=== PATIENT | female | born 2000 | race Caucasian/White ===

== ENCOUNTER 2022-06-09 21:24 | Inpatient (IN) | payer BC ==
[~2022-06-09] VITALS: Ht 172.7 cm; Wt 77.3 kg
[2022-06-09 21:30] VITALS: TEMP 98.6
[2022-06-09 21:45] VITALS: BP 115/59; PULSE 88; TEMP 98.9
--- NOTE | 2022-06-09 22:10 | NUR ---
PT PRESENTS TO L&D WITH C/O UC'S SINCE 183, GETTING STRONGER AND HURTING MORE WHEN SHE WALKS. SHE HAS BLOODY SHOW BUT NO LEAKING FLUID. SVE /-2. DR VILA HERE IN HOUSE INFORMED OF SVE AND PT'S COMPLAINTS. PLAN IS TO HAVE PT AMB FOR 1 HR AND RECHECK CERVIX. FHR 135. MODERATE VARIBILITY, ACCELS NOTED NO DECELS.
--- NOTE | 2022-06-09 23:30 | NUR ---
tessa pittman here to place epidural. pt in sitting position. time out at 2331 single shot done at 2340 pt tolerated well.
[2022-06-10] VITALS (31 sets, daily range): BP systolic 96–146; BP diastolic 54–77; PULSE 76–116; TEMP 97.9–98.4
[2022-06-10 00:24] LABS: BASO % 0.2 % (0.0-2.0); EOS % 0.1 % (0.0-4.0); GRAN # 16.5 K/mm3 (1.4-6.5); GRAN % 88.3 % (42.2-75.2); HEMATOCRIT 35.4 % (37.0-47.0); LYMPH # 1.3 K/mm3 (1.2-3.4); MEAN CELL VOLUME 85 fl (80.0-100.0); MEAN CORPUSCULAR HEMOGLOBIN 29 pg (27-31); MEAN CORPUSCULAR HGB CONC 34 g/dl (33.0-37.0); MEAN PLATELET VOLUME 12.3 fl (7.4-10.4); MONO # 0.6 K/mm3 (0.1-0.6); MONO % 3.4 % (1.7-9.3); PLATELET COUNT 225 K/mm3 (130-400); RED BLOOD COUNT 4.17 M/mm3 (4.10-5.30); REDCELL DISTRIBUTION WIDTH-CV 14.1 % (11.5-14.5)
--- NOTE | 2022-06-10 00:52 | NUR ---
ROLES HERE SVE /-2, AROM FLUID CLEAR. CHANGED PT POSITION TO LEFT LATERAL AAFTER VAG EXAM. PILLOWS PLACED FOR COMFORT.
--- NOTE | 2022-06-10 04:30 | NUR ---
0423- ISAC FINNEY'Sidra, 350MLS OUT. 0429- PT BEGINS PRACTICE PUSHING WITH THIS NURSE.
--- NOTE | 2022-06-10 05:00 | NUR ---
0406-SVE OF COMPLETE, ROOM BEING PREPARED FOR DELIVERY. 0435- DR. VILA NOTIFIED OF IMPENDING DELIVERY, ON HER WAY TO THE HOSPITAL. 0447- DR. VILA IN ROOM FOR DELIVERY. 0449- SPONTANEOUS VAGINAL DELIVERY OF VIABLE BABY GIRL. BABY TO MOTHER'S ABDOMEN. CORD CLAMPED BY DR. VILA, CUT BY FOB. BABY CARES ASSUMED BY Mireille TOLEDO RN 0453- SPONTANEOUS DELIVERY OF INTACT PLACENTA. PITOCIN STARTED AT 333ML/HR PER PROTOCOL. RED IRLANDA PERFORMED BY DR. VILA, MINIMAL URINE OUT. 0500- RECOVERY STARTED.
[2022-06-11 00:45] VITALS: BP 111/67; PULSE 68; TEMP 97.8
[2022-06-11 08:18] VITALS: BP 112/68; PULSE 78; TEMP 98.1
[2022-06-11 13:31] VITALS: BP 112/62; PULSE 76
== END 2022-06-11 13:55 | disposition home or self-care (01) | DRG 807 ==
LOC: LDRO 21:24 → OB 23:32 → LDR 23:32 → OB 06-10 06:44
PROVIDERS: ADMIT Obstetrics & Gynecology
PROC: 10E0XZZ Delivery of Products of Conception, External Approach (ICD-10-PCS; principal; 2022-06-10)
PROC: 0KQM0ZZ Repair Perineum Muscle, Open Approach (ICD-10-PCS; 2022-06-10)
PROC: 10907ZC Drainage of Amniotic Fluid, Therapeutic from Products of Conception, Via Natural or Artificial Opening (ICD-10-PCS; 2022-06-10)
DX: O70.1 Second degree perineal laceration during delivery (principal); Z37.0 Single live birth; Z3A.39 39 weeks gestation of pregnancy
CPT/HCPCS: J2590; J7120

== ENCOUNTER 2024-09-14 05:28 | Inpatient (IN) | payer BC, MEDICAID ==
[~2024-09-14] VITALS: Ht 170.2 cm; Wt 78.6 kg
[2024-09-14] VITALS (11 sets, daily range): BP systolic 114–138; BP diastolic 59–87; PULSE 71–105; TEMP 98–98.1
--- NOTE | 2024-09-14 05:35 | NUR ---
PATIENT AMBULATORY TO UNIT STATING SHE HAD SROM AT 0500 CLEAR FLUID WITH SOME BLOODY SHOW NOTED. CONTRACTIONS STARTED AROUND 0030. PATIENT CHANGED INTO HOSPTIAL GOWN. EFMX2.
[2024-09-14] MEDS ORDERED: LR 1,000 ML IV PRN ×3 (05:45→06:15)
--- NOTE | 2024-09-14 05:53 | NUR ---
Note much difficulty tracing heart tones. SVE 10/100/+2, FSE placed by this contract technical writer at this time. Provider, charge nurse, nursery notified.
--- NOTE | 2024-09-14 06:05 | NUR ---
THIS RN TO BEDSIDE FOR BEDSIDE REPORT FROM [facility]. IN ROOM FOR DELIVERY AND PATIENT PUSHING.
[2024-09-14] MEDS ORDERED: LR & Oxytocin 500 ML IV SCH (06:15)
[2024-09-14] MEDS ORDERED: LR 1,000 ML IV SCH ×2 (06:15)
--- NOTE | 2024-09-14 06:17 | NUR ---
0609- PATIENT PUSHES WITH THROUGH CONTRACTION. FHR DECELERATES INTO THE 40s AND RECOVERS AFTER 2 MINUTES. ENCOURAGES PATIENT TO PUSH WITH MAXIMUM EFFORT WITH NEXT CONTRACTION. 0612- SPONTANEOUS DELIVERY OF INFANT HEAD AND SHOULDERS AT THIS TIME. 0617- SPONTANEOUS DELIVERY OF PLACENTA AT THIS TIME. PTIOCIN STARTED AT 333mU/HR ORDERED AND PER PROTOCOL.
[2024-09-14 06:35] LABS: BASO % 0.2 % (0.0-2.0); EOS % 0.2 % (0.0-4.0); GRAN % 83.7 % (42.2-75.2); HEMATOCRIT 38.7 % (37.0-47.0); HEMOGLOBIN 13.2 g/dl (12.5-16.0); LYMPH % 11.3 % (20.0-51.0); MEAN CELL VOLUME 89 fl (80.0-100.0); MEAN CORPUSCULAR HEMOGLOBIN 30 pg (27-31); MEAN CORPUSCULAR HGB CONC 34 g/dl (33.0-37.0); MEAN PLATELET VOLUME 12.7 fl (7.4-10.4); MONO # 0.6 K/mm3 (0.1-0.6); MONO % 3.4 % (1.7-9.3); PLATELET COUNT 238 K/mm3 (130-400); RED BLOOD COUNT 4.34 M/mm3 (4.10-5.30)
[2024-09-14] MEDS ORDERED: Ibuprofen 600 MG TAB PO SCH (07:00)
[2024-09-14] MEDS ORDERED: Loratadine 10 MG TAB PO PRN (07:00)
[2024-09-14] MEDS ORDERED: Measles/Mumps/Rubella Virus Vaccine Live w Diluent 0.5 ML VIAL SQ SCH (07:00)
[2024-09-14] MEDS ORDERED: Phenylephrine/Mineral Oil/Petrolatum 57 GM TUBE RC PRN (07:00)
[2024-09-14] MEDS ORDERED: Acetaminophen 500 MG TAB PO SCH (07:00)
[2024-09-14] MEDS ORDERED: Witch Hazel 50% Pads Bulk TUB TP PRN (07:00)
[2024-09-14] MEDS ORDERED: Magnes Hydrox (MOM) 80 MG/ML 30 ML CUP PO PRN (07:00)
[2024-09-14] MEDS ORDERED: Mag/Al Hydrox/Simeth Susp 30 ML CUP PO PRN (07:00)
[2024-09-14] MEDS ORDERED: oxyCODONE 5 MG TAB PO PRN (07:00)
[2024-09-14] MEDS ORDERED: Naloxone 0.4 MG/ML VIAL IV PRN (07:00)
[2024-09-14] MEDS ORDERED: Tdap Vaccine 0.5 ML SYRINGE IM SCH (07:00)
[2024-09-14] MEDS ORDERED: PRENATAL TABLET PO (07:40)
[2024-09-14] MEDS ORDERED: Sennosides/Docusate 8.6-50 MG TAB PO SCH (08:00)
--- NOTE | 2024-09-14 08:15 | NUR ---
THIS RN TO BEDSIDE TO ASSIST PATIENT TO RESTROOM. PATIENT ASSISTED TO DANGLE WITHOUT DIFFICULTY, PATIENT ASSISTED TO STAND WITHOUT FEELING DIZZY OR LIGHTHEADED. PATIENT AMBULATORY TO RESTROOM INDEPENDENTLY. PATIENT VOIDS, PERFORMS PERICARE, AND IS ASSISTED INTO A CLEAN GOWN AND MESH UNDERWEAR WITH ICE PACK PAD. PATIENT AMBULATORY TO ROOM 216 AND ORIENTED TO ROOM. PATIENT UPDATED ON PLAN OF CARE.
[2024-09-14] MEDS ORDERED: traZODone 50 MG TAB PO PRN (21:00)
[2024-09-15 01:35] VITALS: BP 106/71; PULSE 62; TEMP 97.9
[2024-09-15] MEDS ORDERED: Influenza Virus Vaccine, Trivalent '24-25 0.5 ML SYRINGE IM SCH (09:00)
[2024-09-15] MEDS ORDERED: MOTRIN 600600 MG/TAB PO (09:47)
== END 2024-09-15 15:10 | disposition home or self-care (01) | DRG 807 ==
LOC: LDRO 05:28 → LDR 05:30 → LDRO 05:44 → LDR 06:13 → OB 08:15
PROVIDERS: Obstetrics & Gynecology; ADMIT Obstetrics & Gynecology
PROC: 10E0XZZ Delivery of Products of Conception, External Approach (ICD-10-PCS; principal; 2024-09-14)
PROC: 3E033VJ Introduction of Other Hormone into Peripheral Vein, Percutaneous Approach (ICD-10-PCS; 2024-09-14)
DX: O75.89 Other specified complications of labor and delivery (principal); Z37.0 Single live birth; Z3A.39 39 weeks gestation of pregnancy; O28.5 Abnormal chromosomal and genetic finding on antenatal screening of mother; O77.0 Labor and delivery complicated by meconium in amniotic fluid
CPT/HCPCS: J2590; J7120